=== PATIENT | male | born 1970 | race Caucasian/White ===

== ENCOUNTER 2019-01-09 08:54 | Outpatient (CLI) | payer BC, SELFPAY ==
[2019-01-09 10:45] LABS: Hemoglobin A1C 5.6 % (4.5-6.2)
[2019-01-09 11:56] LABS: Anion Gap 9.5 mmol/L (3-11); BUN 14 mg/dL (7-18); CO2 25.5 mmol/L (21.0-32.0); CREATININE 0.87 mg/dL (0.70-1.30); Calcium 9.1 mg/dL (8.5-10.1); Calculated LDL 124 mg/dL; Chloride 96 mmol/L (98-107); Cholesterol 189 mg/dL (50-200); Glucose 101 mg/dL (70-100); HDL Cholesterol 48 mg/dL (40-60); Potassium 4.6 mmol/L (3.5-5.1); Sodium 131 mmol/L (136-145); Triglyceride 85 mg/dL (30-150)
== END 2019-01-09 09:14 ==
PROVIDERS: PCP Nurse Practitioner Family; Visit Provider Nurse Practitioner Family
DX: E78.5 Hyperlipidemia, unspecified (principal); I10 Essential (primary) hypertension
CPT/HCPCS: 36415; 80048; 80061; 83721; 83036

== ENCOUNTER 2019-01-30 08:33 | Outpatient (CLI) | payer BC, SELFPAY ==
[2019-01-30 10:45] LABS: Anion Gap 9.7 mmol/L (3-11); BUN 14 mg/dL (7-18); CO2 25.3 mmol/L (21.0-32.0); CREATININE 0.99 mg/dL (0.70-1.30); Calcium 9.2 mg/dL (8.5-10.1); Chloride 103 mmol/L (98-107); Glucose 98 mg/dL (70-100); Sodium 138 mmol/L (136-145)
== END 2019-01-30 08:53 ==
PROVIDERS: PCP Nurse Practitioner Family; Visit Provider Nurse Practitioner Family
DX: I10 Essential (primary) hypertension (principal)
CPT/HCPCS: 36415; 80048

== ENCOUNTER 2020-02-12 00:53 | Outpatient (CLI) | payer BC, SELFPAY ==
[2020-02-12 13:00] LABS: Anion Gap 9.8 mmol/L (3-11); BUN 16 mg/dL (7-18); CO2 25.2 mmol/L (21.0-32.0); CREATININE 0.98 mg/dL (0.70-1.30); Calcium 9.4 mg/dL (8.5-10.1); Calculated LDL 159 mg/dL (<100); Chloride 101 mmol/L (98-107); Cholesterol 226 mg/dL (<200); Glucose 91 mg/dL (74-106); HDL Cholesterol 51 mg/dL (40-60); Potassium 4.7 mmol/L (3.5-5.1); Sodium 136 mmol/L (136-145); Triglyceride 80 mg/dL (<150)
== END 2020-02-12 01:13 ==
PROVIDERS: PCP Nurse Practitioner Family; Visit Provider Nurse Practitioner Family
DX: I10 Essential (primary) hypertension (principal); E78.5 Hyperlipidemia, unspecified
CPT/HCPCS: 36415; 80048; 80061

== ENCOUNTER 2020-08-02 10:10 | Outpatient (CLI) | payer BC, SELFPAY ==
--- NOTE | 2020-08-02 10:31 | DI.RAD_ITS ---
EXAM: XR HAND LT COMPLETE CLINICAL HISTORY: trauma left dorsal hand [id number]. TECHNIQUE: 2D digital imaging was performed. COMPARISON: No exams were available for comparison FINDINGS: BONES: No acute fracture is present. No bony destructive lesion is seen. JOINTS: No dislocation present. SOFT TISSUE: Normal. IMPRESSION: No acute fracture or dislocation. DATA REPOSITORY: RADIATION DOSE DELIVERED:
== END 2020-08-02 10:11 ==
LOC: DI 10:15
PROVIDERS: PCP Nurse Practitioner Family; Visit Provider Emergency Medicine
DX: M79.642 Pain in left hand (principal); S69.82XA Other specified injuries of left wrist, hand and finger(s), initial encounter
CPT/HCPCS: 73130

== ENCOUNTER 2021-11-24 08:07 | Day surgery (SDC) | payer BC, SELFPAY ==
--- NOTE | 2021-11-23 10:05 | W.COLOREPORT ---
Colonoscopy Report Date of procedure: 11/24/21 Pre-op diagnosis general: CRC screening Post-op diagnosis procedure note: same Surgeon: Deisi Solorzano Anesthesia Type: General:No Airway Estimated blood loss (mL): 0 Pathology: none sent Complications: None Disposition: same day Prep: Miralax/Dulcolax Retraction Time: 8 Procedure Description: After informed consent was obtained the patient was taken to the procedure room and placed in a left decubitous position. Monitors were applied and a time out was done. The patients name, date of , procedure, allergies to medications and metal in their body was reviewed. The patient was then sedated. Once sedated and comfortable a rectal exam was done. External exam was normal. Internal exam revealed a normal sphincter tone and no palpable masses. The scope was then introduced and retrofelexed. No without internal hemorrhoids were identified. The scope was then advanced to the cecum difficulty. The TI and appendiceal orifice were identified. The prep was BB PS 3 in all segments for total of 9. The scope was then slowly retracted over 8 minutes back into the rectum. The mucosa is pink and healthy with a normal vascular pattern. there are no polyps, AVMs, or diverticula visualized today. The scope was removed and the patient was woken up and taken back to Same day surgery in stable condition. The patient tolerated the procedure well and there were no immediate complications. Follow up: The patient should follow up in 10 years unless they develop changes in bowel habits or other new gastrointestinal complaints.
--- NOTE | 2021-11-23 20:15 | PDOC.DSDIS_ITS ---
Discharge Plan Disposition Patient Disposition: HOME Condition: Good Discharge Details Reason For Visit: colonscope Attending Provider: Deisi Solorzano Primary Care Provider: Lynda iFne Home Meds and New Rx's Prescriptions: Continued lisinopril 40 mg tablet 40 mg PO DAILY Qty: 90 4RF fluticasone propionate 50 mcg/actuation spray,suspension 2 spray ROBBI DAILY PRN (Reason: allergy symptoms) Qty: 19.8 4RF Rx Instructions: administer into each nostril once a day amlodipine 10 mg tablet 10 mg PO DAILY Qty: 90 4RF loratadine 10 mg tablet 10 mg PO DAILY PRN Discontinued polyethylene glycol 3350 17 gram/dose powder 238 g PO ONCE Qty: 238 0RF Rx Instructions: take per colonoscopy instructions bisacodyl [Dulcolax (bisacodyl)] 5 mg tablet,delayed release (DR/EC) 5 mg PO ONCE Qty: 4 0RF Rx Instructions: take per colonoscopy instructions Discharge Instructions Additional Instructions: DSU Colonoscopy Post- Op Instructions Instructions for Everyone who is given Anesthesia: For your safety, please do the following for the next twenty-four (24) hours: *Do Not operate a motor vehicle (car, truck, motorcycle, etc.) *Do Not drink alcoholic beverages or use any recreational drugs for the first 24 hours or while taking pain medications. The medications in your body may have a reaction that can be dangerous. *Do Not make any important decisions or sign any important papers. Findings: Normal Follow up: Repeat in 10 years time 1. No lifting over 20 pounds or strenuous activity for the first 24 hours after your procedure. After 24 hours there are no restrictions on your activity but you may feel fatigued for a few days. 2. After you arrive home you may have a light meal and return to your normal diet as you can tolerate it without feeling sick to your stomach. 3. You may have a bloated, gaseous feeling in your belly (abdomen) after a colonoscopy. Passing gas and belching will help. Walking or lying down on your left side with your knees flexed may relieve the discomfort. Call the office at [phone] (Office) or [phone] (Hospital) right away if you notice any of the following: a.Vomiting of blood or ?coffee ground stools?. b.Rectal bleeding 1Tbsp, blood clots or continuous bleeding. c.Severe belly (abdominal) pain. d.A hard distended belly (abdomen) and an inability to pass gas. 4. Please don?t expect to have a normal BM (bowel movement) for 2-3 days after your procedure. 5. If there are questions regarding the findings of your procedure, please contact your doctor 6. If you are unable to contact your doctor with a problem, contact the hospital at [phone]. 7. Continue all your regular medications unless directed otherwise. I understand the above instructions and have no questions. Signature of Patient or Adult Escort Name of Responsible Adult Escort Signature of Nurse Date/Time Activity:: See above Diet:: See above Discharge Orders Discharge Orders: Discharge Order (Routine); Ordered 11/23/21 Ordered By: Deisi Solorzano
[2021-11-24 08:19] VITALS: BP 151/95; PULSE 119; RESP 18; TEMP 36.7; O2SAT 100
[2021-11-24] MEDS: Lactated Ringers 1,000 ML 80 ML IV (08:35)
--- NOTE | 2021-11-24 08:44 | W.ANESPRE ---
General Info Date of Service Date Performed: 11/24/21 Height: 5 ft 9 in Weight: 121.4 kg Body Mass Index (BMI): 39.5 Surgical Procedure: Operation Date: 11/24/21 09:05 Proposed Procedure Side Surgeon ally Solorzano, DO Meds Allergies and Home Medications Allergies Allergy/AdvReac Type Severity Reaction Status Date / Time No Known Allergies Allergy Verified 11/24/21 08:26 Home Medication Medication Instructions Recorded loratadine 10 mg tablet 10 mg PO DAILY PRN 07/01/20 fluticasone propionate 50 2 spray intranasal DAILY PRN 02/10/21 mcg/actuation nasal allergy symptoms #19.8 grams spray,suspension lisinopril 40 mg tablet 40 mg PO DAILY #90 tabs 02/10/21 amlodipine 10 mg tablet 10 mg PO DAILY #90 tabs 03/10/21 Current Visit Medications: Current Medications Generic Name Dose Route Start Last Admin Trade Name Freq PRN Reason Stop Dose Admin Hyoscyamine Sulfate 0.125 mg 11/23/21 10:04 Hyoscyamine 0.125 Mg Sl/Oral/Chew SL 11/24/21 16:00 DIRECTED PRN Ringer's Solution 1,000 mls @ 80 mls/hr 11/24/21 06:00 11/24/21 08:35 IV 12/21/21 23:59 80 mls/hr INFUSION SHILPA Administration IV Miscellaneous Supplies 1 each 11/24/21 06:00 Iv Access IV 12/21/21 23:59 DIRECTED SHILPA Ondansetron HCl 4 mg 11/23/21 10:04 Ondansetron 4 Mg/2 Ml Vial IVP 11/24/21 16:00 Q4H PRN PRN Nausea / Vomiting Sodium Chloride 0 ml 11/24/21 06:00 Normal Saline Flush 10 Ml Syr IV 12/21/21 23:59 PRN PRN Sodium Chloride 0 ml 11/24/21 06:00 Normal Saline 10 Ml Vial IJ 12/21/21 23:59 DIRECTED PRN Sterile Water 0 ml 11/24/21 06:00 Water,Injection,Sterile 10 Ml Vial IJ 12/21/21 23:59 DIRECTED PRN PFSH Active Problems Active Problems: Problem Status Onset Code Screening for colon cancer Z12.11 Essential hypertension I10 Hyperlipidemia E78.5 Obesity E66.9 Medical History Medical History Allergic rhinitis COVID-19 virus infection Positive COVID test 08/29/20 Surgical History Surgical History No significant past surgical history Tobacco Smoking/Tobacco Use Status: Never Passive smoking exposure: Yes Alcohol Alcohol Intake: current Alcohol intake frequency: a few times a month Alcohol type: beer Substance Use Substance use: Never Substance use type: does not use Vital Signs and Lab Results Vital Signs Most Recent Vital Signs in EMR: Most Recent Vital Signs Temp Pulse Resp BP Pulse Ox 36.7 C 119 H 18 151/95 H 100 11/24/21 08:19 11/24/21 08:19 11/24/21 08:19 11/24/21 08:19 11/24/21 08:19 Lab Results Blood Type / Crossmatch: No Data to Display Complete Blood Count: No Data to Display Complete Metabolic Panel: No Data to Display Liver Function Panel: No Data to Display Coagulation Panel: No Data to Display Cardiac Panel: No Data to Display Arterial Blood Gas: No Data to Display Venous Blood Gas: No Data to Display Pancreas Panel: No Data to Display Thyroid Panel: No Data to Display Infectious Disease: No Data to Display Blood Cultures: No Data to Display Toxicology Panel: No Data to Display Anesthesia Assessment and Plan Anesthesia History Personal History: No History of Anesthesia Complications Family History: No Family History of Anesthesia Complications Exercise Tolerance Exercise Tolerance: Metabolic Equivalents>4 Pertinent Negatives Pertinent Negatives: No Symptoms of GERD Cardiac & Pulmonary Exam Cardiac Exam: Normal S1/S2 Heart Sounds Pulmonary Exam: Clear Bilateral Breath Sounds Implantable Cardiac Device Does patient have a Pacemaker or an ICD?: No Airway Exam Known Difficult Airway: No Mallampati Class: 2 Mouth Opening: Normal (> 3cm) Thyromental Distance: Greater than 3 cm Neck Range of Motion: Full ROM Neck Circumference: Thick Teeth Condition: Loose or Chipped (Projected forward. Loose front left) Airway Comments: Due to teeth mal alignment might have airway placement difficulty ASA Classification ASA Score: ASA 2 Emergency Case?: No NPO Status NPO Status: NPO Clears >2 hours, Solids >8 hours Anesthesia Plan Resuscitation Status: Full Code Anesthesia Technique: General Anesthesia Airway Planned: Natural Airway Monitors Used: Standard Monitors
[2021-11-24 09:18] VITALS: BMI 39.5
[2021-11-24 10:03] VITALS: BP 124/78; PULSE 95; RESP 17; TEMP 36.2; O2SAT 97
--- NOTE | 2021-11-24 10:09 | W.ANESPOSTOP ---
Postoperative Evaluation Date, Time and Location Date Performed: 11/24/21 Time Performed: 09:10 Patient Location: Day Surgery Unit Vital Signs Most Recent Imported Vital Signs: Most Recent Vital Signs Temp Pulse Resp BP Pulse Ox 36.2 C L 95 H 17 124/78 97 11/24/21 10:03 11/24/21 10:03 11/24/21 10:03 11/24/21 10:11/24/21 10:03 Pain Score Most Recent Pain Score: Most Recent Pain Score Pain Level 0 11/24/21 10:03 Assessment Mental Status: Awake (Alert & Oriented to Patient Baseline) Airway and Respiratory Function: Patent airway with normal (patient baseline) respiratory exam Cardiovascular Function: Hemodynamically Stable Hydration Status: Adequately Hydrated Nausea & Vomiting: No Nausea or Vomiting Pain: Pt. Denies Any Pain Peripheral Nerve Block: Patient did not receive a nerve block
[2021-11-24 10:21] VITALS: BP 136/83; PULSE 90; RESP 18; TEMP 36.6; O2SAT 98
== END 2021-11-24 10:55 | disposition home or self-care (01) ==
PROVIDERS: PCP Nurse Practitioner Family; Visit Provider Surgery
PROC: 0DJD8ZZ Inspection of Lower Intestinal Tract, Via Natural or Artificial Opening Endoscopic (ICD-10-PCS; CPT 45378; principal; 2021-11-24 09:00)
DX: Z12.11 Encounter for screening for malignant neoplasm of colon (principal); I10 Essential (primary) hypertension; E78.5 Hyperlipidemia, unspecified; E66.9 Obesity, unspecified; J30.9 Allergic rhinitis, unspecified
CPT/HCPCS: 45378

== ENCOUNTER 2022-03-22 13:12 | Outpatient (CLI) | payer BC, SELFPAY ==
--- NOTE | 2022-03-22 13:00 | RT.EKG_ITS ---
APPROVED REPORT Exam: Resting ECG Reason for Exam: tachycardia Patient Location: O HR:115 bpm ECG Measurements Heart Rate 115 AXIS MA 130 P 51 QRSd 103 QRS 70 QT 325 T 26 QTc 450 Conclusion Sinus tachycardia...rate> 99 Abnormal R-wave progression, early transition...QRS area>0 in V2
== END 2022-03-22 13:13 | disposition home or self-care (01) ==
LOC: DI.CM 13:13
PROVIDERS: PCP Nurse Practitioner Family; Visit Provider Nurse Practitioner Family
DX: R00.0 Tachycardia, unspecified (principal); R94.31 Abnormal electrocardiogram [ECG] [EKG]
CPT/HCPCS: 93010

== ENCOUNTER 2022-04-24 20:07 | Emergency (ER) | payer BC, SELFPAY ==
[2022-04-24 20:19] VITALS: BP 125/79; PULSE 116; RESP 20; TEMP 37.2; O2SAT 99
--- NOTE | 2022-04-24 21:36 | NUR.NOTE ---
Urology referral faxed for pt to be seen in 1-2 weeks for left ureteral stone - [facility] - Nursing Note:
--- NOTE | 2022-04-24 21:39 | ED.GENADUL_ITS ---
Discharge Plan Disposition Patient Disposition: HOME Condition: Good Discharge Details Clinical Impression: Tick bite of back wall of thorax Primary Care Provider: Lynda Fine ED Provider: Jonh Stokes Home Meds and New Rx's Prescriptions: Continued amlodipine 10 mg tablet 10 mg PO DAILY Qty: 90 3RF lisinopril 40 mg tablet 40 mg PO DAILY Qty: 90 3RF fluticasone propionate 50 mcg/actuation spray,suspension 2 spray ROBBI DAILY PRN (Reason: allergy symptoms) Qty: 19.8 4RF Rx Instructions: administer into each nostril once a day loratadine 10 mg tablet 10 mg PO DAILY PRN Discharge Instructions Instructions: Tick Bite (ED) Additional Instructions: Please monitor to the tick bite for any signs of infection. If this occurs please follow-up with your primary care provider or return to the emergency department. As discussed also monitor for the signs of tickborne illness for the next month and again if these occur follow-up with your primary care provider or emergency department as needed. Referrals: Lynda Fine, TYING IN MACHINE OPERATOR [Primary Care Provider] - (As needed for reassessment ) Discharge Data Discharge Date/Time-TO BE ENTERED AT DEPARTURE: 04/24/22 22:00 Medical Decision Making Patient presenting to the emergency department for chief complaint of tick bite. Patient denies any other symptoms and stated part removal of tick by and due to retained feces. Physical exam shows findings consistent with tick bite to left flank no erythema margins and exam is otherwise unremarkable. Attempted to remove remaining pieces of tick with majority was removed but there may be small piece left. Patient was instructed to watch for signs of infection and apply warm compresses to help with the body processing the foreign body. Given unknown attachment time and unknown tick type we will give patient single dose of doxycycline and patient instructed on Lyme type symptoms to watch for. After discussion of diagnosis and plan of care patient has no further needs, questions, or concerns and states clear understanding to return to the emergency department for any worsening symptoms. This documentation was generated using [employer] system, please disregard any oddities of phrase or misspellings. HPI General Mode of arrival: ambulatory . Date/Time Provider Initiated Documentation: 04/24/22 21:39 . Limitations to Documentation: no limitations . Information obtained by: patient and RN notes reviewed . History of Present Illness 51 year old M presents to the emergency department with the chief complaint of tick bite, Patient reports radiation to back. Patient started experiencing this unknown Patient notes no other symptoms.. Related Data Home Medications Medication Instructions Recorded Confirmed loratadine 10 mg tablet 10 mg PO DAILY PRN 07/01/20 04/24/22 amlodipine 10 mg tablet 10 mg PO DAILY #90 tabs 03/22/22 04/24/22 fluticasone propionate 50 2 spray intranasal DAILY PRN 03/22/22 04/24/22 mcg/actuation nasal allergy symptoms #19.8 grams spray,suspension lisinopril 40 mg tablet 40 mg PO DAILY #90 tabs 03/22/22 04/24/22 Previous Rx's Medication Instructions Recorded amlodipine 10 mg tablet 10 mg PO DAILY #90 tabs 03/22/22 fluticasone propionate 50 2 spray intranasal DAILY PRN 03/22/22 mcg/actuation nasal allergy symptoms #19.8 grams spray,suspension lisinopril 40 mg tablet 40 mg PO DAILY #90 tabs 03/22/22 Allergies Allergy/AdvReac Type Severity Reaction Status Date / Time No Known Allergies Allergy Verified 03/22/22 12:35 General Stated Complaint: GenMedical JORGE: 4 Review of Systems All systems reviewed & are unremarkable except as noted in HPI and below Constitutional Constitutional: Denies chills and Denies fever(s) Musculoskeletal Musculoskeletal: Denies arthralgias and Denies joint swelling Integumentary/Breasts Skin/Breast: Reports as per HPI, Reports erythema, Denies rash and Denies skin pain PFSH All Active Problems (Updated 04/24/22 @ 21:41 by Jonh Stokes NP) Tick bite of back wall of thorax (Acute) Essential hypertension (Chronic) Hyperlipidemia (Chronic) Obesity (Chronic) Medical History (Updated 04/24/22 @ 21:41 by Jonh Stokes NP) Allergic rhinitis COVID-19 virus infection Positive COVID test 08/29/20 Surgical History (Updated 03/23/22 @ 05:00 by Lynda Fine NP) No significant past surgical history S/P colonoscopy (2021) Family History Mother Type 2 diabetes mellitus Neoplasm of spine Father Hypertension Sister No problems noted. Sister No problems noted. Sister , at 35 of drug overdose Substance abuse Brother Hypertension Brother No problems noted. Maternal Grandfather No problems noted. Maternal Grandmother Alzheimers disease Paternal Grandfather Type 2 diabetes mellitus Emphysema of lung Paternal Grandmother No problems noted. Social History (Updated 03/27/22 @ 13:27 by Deb Plummer) Smoking/Tobacco Use Status: Never Smoking risk assessment performed?: Yes Alcohol Intake: current Alcohol Intake frequency: a few times a month Alcohol type: beer Drug use: Never Substance use type: does not use Caregiver/Support person: No Household members: spouse and children Housing: house Communication Needs: Corrective Lenses Do you need help understanding health information?: Rarely Pets and animals: Yes Pets and animals: cat(s), dog(s) and horse(s) Sexually active: Yes Do you think of yourself as: straight/heterosexual Current gender identity: male What is your relationship status?: How often do you talk on the phone with friends or family?: three or more times per week How often do you get together with friends or relatives?: twice per week How often do you attend gnosticist or nondenominational services?: decline to answer Do you belong to any clubs or organized social groups?: no Panel score (0-1 are the most socially isolated patients): 2 Marielos/Yazdanism: Gnosticist Special marielos needs: No Seatbelt use: always Drive intox or ride w/intox fuel oil truck driver: No Do you feel safe at home: Yes Do you feel safe in your relationship?: Yes Exam Const General: cooperative, comfortable and no acute distress Orientation: alert, awake and oriented x3 Resp Effort & Inspection: normal respiratory effort and able to speak in complete sentences Skin General skin exam: erythema (Circular area with central bite ministerio consistent with insect/tick bite), no fluctuance and no induration Rashes: no rashes Neuro General: patient alert, patient awake and patient oriented x3 Course Vital Signs Vital signs: Vital Signs Temperature 37.2 C 04/24/22 20:19 Pulse 116 H 04/24/22 20:19 Respiratory Rate 20 04/24/22 20:19 Blood Pressure 125/79 04/24/22 20:19 Pulse Oximetry 99 04/24/22 20:19 Temperature 37.2 C 04/24/22 20:19 Temperature Source Temporal Artery Scan 04/24/22 20:19 Pulse 116 H 04/24/22 20:19 Respiratory Rate 20 04/24/22 20:19 Blood Pressure 125/79 04/24/22 20:19 Blood Pressure Position Sitting 04/24/22 20:19 Pulse Oximetry 99 04/24/22 20:19 Oxygen Delivery Method Room Air 04/24/22 20:19 Oxygen Flow Rate 0 04/24/22 20:19 Pain Level 0 04/24/22 20:19
[2022-04-24] MEDS: Doxycycline Hyclate 100 MG CAP 200 MG PO (21:59)
== END 2022-04-24 22:00 | disposition home or self-care (01) ==
PROVIDERS: Emergency Provider Nurse Practitioner Family; PCP Nurse Practitioner Family
DX: S20.462A Insect bite (nonvenomous) of left back wall of thorax, initial encounter (principal); W57.XXXA Bitten or stung by nonvenomous insect and other nonvenomous arthropods, initial encounter
CPT/HCPCS: 99283; 99282

== ENCOUNTER 2022-09-27 10:38 | Outpatient (RCR) | payer BC, SELFPAY ==
--- NOTE | 2022-09-27 10:27 | HOLTER_ITS ---
APPROVED REPORT Conclusion This is a 48-hour Holter monitor Rhythm throughout is sinus with an average heart rate of 89. Minimum was 58, maximum 148 There were rare isolated atrial and ventricular ectopic beats There was no atrial fibrillation, no SVT, no high-grade AV block, no pauses greater than 3 seconds No patient symptoms were reported
== END 2022-10-21 23:59 | disposition home or self-care (01) ==
LOC: CARDOPNVT 10:38
PROVIDERS: PCP Nurse Practitioner Family; Visit Provider Nurse Practitioner Family
DX: R00.0 Tachycardia, unspecified (principal)
CPT/HCPCS: 93225; 93226

== ENCOUNTER 2023-10-18 07:57 | Outpatient (CLI) | payer BC, SELFPAY ==
[2023-10-18 12:35] LABS: Abs Immature Grans 0.04 10^3/uL (0.0-0.06); Absolute Basophil Count 0.07 10^3/uL (0.0-0.2); Absolute Eosinophil Count 0.18 10^3/uL (0.0-0.7); Absolute Lymphocyte Count 1.62 10^3/uL (1.2-3.4); Absolute Monocyte Count 0.83 10^3/uL (0.1-0.8); Absolute Neutrophil Count 5.95 10^3/uL (1.2-6.7); Basophils % 0.8; Eosinophils % 2.1; HCT 49.3 % (40.0-50.0); HGB 16.1 g/dL (13.5-17.5); Immature Grans % 0.5; Lymphocytes % 18.6; MCH 29.3 pg (27.0-33.0); MCHC 32.7 % (32.0-36.0); MCV 90 fL (80-95); MPV 9.6 fL (8.0-11.0); Monocytes % 9.6; Neutrophils % 68.4; Platelet Count 371 10^3/uL (130-400); RBC 5.49 10^6/uL (4.36-5.78); RDW 12.5 % (11.8-14.1); RDW-SD 41.8 fL; WBC 8.69 10^3/uL (4.4-10.8)
[2023-10-18 12:54] LABS: ALT 49 U/L (16-63); AST 20 U/L (15-37); Albumin 3.8 g/dL (3.4-5.0); Alkaline Phosphatase 65 U/L (46-116); BUN 13 mg/dL (7-18); Bilirubin, Total 0.6 mg/dL (0.2-1.0); Calcium 9.2 mg/dL (8.5-10.1); Calculated LDL 149 mg/dL (<100); Chloride 101 mmol/L (98-107); Cholesterol 224 mg/dL (<200); Estimated GFR 90.56 (mL/min/1.73m2); Glucose 102 mg/dL (74-106); HDL Cholesterol 55 mg/dL (40-60); Potassium 4.6 mmol/L (3.5-5.1); Sodium 135 mmol/L (136-145); TSH (W/Ref FT4) 2.98 uIU/mL (0.36-3.74); Total Protein 7.7 g/dL (6.4-8.2); Triglyceride 103 mg/dL (<150)
[2023-10-18 12:57] LABS: Hemoglobin A1C 5.5 % (<5.7)
[2023-10-18 18:13] LABS: PSA, Screening 0.4 ng/mL (<=3.5)
[2023-10-18 18:53] LABS: Hepatitis C Ab w Rflx HCV PCR Negative (Negative)
== END 2023-10-18 07:58 | disposition home or self-care (01) ==
LOC: LOS 07:58
PROVIDERS: PCP Nurse Practitioner Family; Referring Provider Nurse Practitioner Family; Visit Provider Nurse Practitioner Family
DX: Z00.00 Encounter for general adult medical examination without abnormal findings (principal); Z12.5 Encounter for screening for malignant neoplasm of prostate; Z11.59 Encounter for screening for other viral diseases; I10 Essential (primary) hypertension
CPT/HCPCS: 36415; 80053; 80061; 84153; 86803; 83036; 84443; 85025

== ENCOUNTER 2025-04-23 00:52 | Outpatient (CLI) | payer BC, SELFPAY ==
[2025-04-23 15:14] LABS: Anion Gap 9.6 mmol/L (3-11); BUN 12 mg/dL (7-18); CO2 24.4 mmol/L (21.0-32.0); Calcium 9.5 mg/dL (8.5-10.1); Chloride 99 mmol/L (98-107); Cholesterol 208 mg/dL (<200); Glucose 84 mg/dL (74-106); HDL Cholesterol 51 mg/dL (>or=40); Potassium 4.7 mmol/L (3.5-5.1); Sodium 133 mmol/L (136-145)
[2025-04-26 09:50] LABS: HIV-1/2 Ag & Ab Screen Negative (Negative)
[2025-04-26 10:16] LABS: HBs Antibody, Quant <3.1 mIU/mL (See Note); Hepatitis B Surface Antigen Negative (Negative)
== END 2025-04-23 00:53 | disposition home or self-care (01) ==
LOC: LOS 00:52
PROVIDERS: PCP Nurse Practitioner Family; Visit Provider Nurse Practitioner Family
DX: I10 Essential (primary) hypertension (principal); E78.5 Hyperlipidemia, unspecified; Z11.4 Encounter for screening for human immunodeficiency virus [HIV]; Z11.59 Encounter for screening for other viral diseases
CPT/HCPCS: 36415; 80048; 80061; 86704; 86706; 87340; 87389